=== PATIENT | female | born 1965 | race Caucasian/White ===

== ENCOUNTER → 2017-02-25 17:24 | Outpatient (CLI) | payer MEDICARE, MEDICAID ==
[2015-04-15 09:41] VITALS: BMI 36.6
[~2017-02-25 17:24] MED LIST: HCTZ25 MG PO; LISINOPRIL10 MG NG; PERCOCET 10/3251 TA1 PO; PHENERGAN25 M1 PO
== END | disposition home or self-care (01) ==
LOC: D.MAMMO 11:30
DX: Z12.31 Encounter for screening mammogram for malignant neoplasm of breast (principal)

== ENCOUNTER 2018-04-07 08:00 | Outpatient (CLI) | payer MEDICARE, MEDICAID ==
[2015-04-15 09:41] VITALS: BMI 36.6
== END 2018-04-07 11:41 | disposition home or self-care (01) ==
LOC: D.MAMMO 08:00
DX: Z12.31 Encounter for screening mammogram for malignant neoplasm of breast (principal)

== ENCOUNTER 2019-06-10 19:00 | Outpatient (CLI) | payer MEDICARE, MEDICAID ==
[2015-04-15 09:41] VITALS: BMI 36.6
== END 2019-06-10 23:59 | disposition home or self-care (01) ==
LOC: D.MAMMO 19:00
PROVIDERS: ATTEND Family Medicine
DX: Z12.31 Encounter for screening mammogram for malignant neoplasm of breast (principal)

== ENCOUNTER 2019-07-03 19:00 | Outpatient (CLI) | payer MEDICARE, MEDICAID ==
[2015-04-15 09:41] VITALS: BMI 36.6
== END 2019-07-03 23:59 | disposition home or self-care (01) ==
LOC: D.MAMMO 19:00
PROVIDERS: ATTEND Family Medicine
DX: R92.8 Other abnormal and inconclusive findings on diagnostic imaging of breast (principal)

== ENCOUNTER 2021-04-04 10:52 | Emergency (ER) | payer MEDICARE, MEDICAID ==
[~2021-04-04] VITALS: Ht 157.5 cm; Wt 88.6 kg
[2021-04-04 11:11] VITALS: Ht 157.5 cm; Wt 88.6 kg
[2021-04-04] MEDS ORDERED: BENADRYL25 MG PO (13:52)
[2021-04-04 14:11] VITALS: BP 139/60
== END 2021-04-04 14:20 | disposition home or self-care (01) ==
LOC: D.ER 10:52
DX: L50.9 Urticaria, unspecified (principal); T44.6X5A Adverse effect of alpha-adrenoreceptor antagonists, initial encounter

== ENCOUNTER 2021-04-07 11:30 | Outpatient (CLI) | payer MEDICARE, MEDICAID ==
[2021-04-04 11:11] VITALS: BMI 35.7
[~2021-04-07 11:30] MED LIST changes: +BENADRYL25 MG PO
== END 2021-04-07 23:59 | disposition home or self-care (01) ==
LOC: D.MAMMO 11:30
PROVIDERS: ATTEND Family Medicine
DX: Z12.31 Encounter for screening mammogram for malignant neoplasm of breast (principal)